=== PATIENT | male | born 1960 | race American Indian/Alaskan Native ===

== ENCOUNTER 2020-12-05 12:19 | Emergency (ER) | payer SELFPAY ==
[2020-12-05 12:43] VITALS: BP 123/81
[2020-12-05] MEDS ORDERED: TETANUS,DIPH,PERTUSS(ACELL) VACCINE 0.5 ML SYRINGE IM ONE (12:43)
[2020-12-05] MEDS ORDERED: LIDOCAINE (1%) 10 MG/1 ML VIAL 20 ML MDV INFILTRATI ONE (12:43)
--- NOTE | 2020-12-05 12:51 | Emergency Department Report ---
ED General Adult HPI - General Stated complaint: L LEG LAC Time Seen by Provider: 12/05/20 12:42 - History of Present Illness Initial comments: 60-year-old -Stateless male patient presents with complaints of left knee laceration today. Patient states while at work, he was using a saw to cut a branch in the branch fell and knocked the chainsaw into his leg. He denies any numbness/tingling/weakness in his leg or difficulty moving his knee. He rates his current pain as a 4/10 in severity. He is unsure of his last tetanus vaccination. -: Sudden - Related Data Previous Rx's Medication Instructions Recorded Last Taken Type Ibuprofen [Motrin 800 MG tab] 800 mg PO Q8HR PRN #20 tablet 12/05/20 Unknown Rx cephALEXin [Keflex] 500 mg PO Q12HR 7 Days #14 cap 12/05/20 Unknown Rx traMADoL [Ultram 50 MG tab] 50 mg PO Q4HR PRN #6 tablet 12/05/20 Unknown Rx Allergies Allergy/AdvReac Type Severity Reaction Status Date / Time No Known Allergies Allergy Unverified 12/05/20 12:36 ED Review of Systems ROS: Stated complaint: L LEG LAC Other details as noted in HPI Musculoskeletal: denies: joint swelling, arthralgia Skin: as per HPI. denies: change in color Neurological: abnormal gait (Antalgic per patient). denies: numbness, paresthesias ED Past Medical Hx - Medications Home Medications: Home Medications Medication Instructions Recorded Confirmed Last Taken Type Ibuprofen [Motrin 800 MG tab] 800 mg PO Q8HR PRN #20 tablet 12/05/20 Unknown Rx cephALEXin [Keflex] 500 mg PO Q12HR 7 Days #14 cap 12/05/20 Unknown Rx traMADoL [Ultram 50 MG tab] 50 mg PO Q4HR PRN #6 tablet 12/05/20 Unknown Rx ED Physical Exam - General General appearance: alert, in no apparent distress - Head Head exam: Present: atraumatic, normocephalic - Eye Eye exam: Absent: scleral icterus - Respiratory Respiratory exam: Absent: respiratory distress - Cardiovascular Cardiovascular Exam: Present: regular rate - Extremities Exam Extremities exam: Present: full ROM (7 cm laceration with mild active bleeding noted to medial lower left knee ; no obvious foreign bodies are noted; patient has normal sensation and full range of motion of the left knee noted;) - Neurological Exam Neurological exam: Present: alert, oriented X3. Absent: motor sensory deficit - Psychiatric Psychiatric exam: Present: normal affect, normal mood - Skin Skin exam: Present: warm, dry, normal color. Absent: rash ED Course Vital Signs 12/05/20 12:36 Temperature 98.2 F Pulse Rate 67 Respiratory 18 Rate Blood Pressure 123/81 O2 Sat by Pulse 97 Oximetry - Laceration /Wound Repair Knee Wound Location: lower extremity Irrigated w/ Saline (ccs): 70 Betadine Prep?: No Anesthesia: 1% Lidocaine Volume Anesthetic (ccs): 10 Wound Repaired With: sutures Suture Size/Type: 3:0, proline Number of Sutures: 17 (Simple interrupted) Sterile Dressing Applied?: Yes Progress: Minimal bleeding occurred. Patient tolerated procedure well without any immediate complications. He has normal range of motion and skin color post suture repair ED Medical Decision Making - Radiology Data Radiology results: report reviewed LEFT KNEE 3 VIEWS INDICATION / CLINICAL INFORMATION: Left knee laceration. Evaluate for foreign body and fracture. COMPARISON: None available. FINDINGS: BONES and JOINT(S): No acute fracture or subluxation. No significant arthritis. SOFT TISSUES: There is an infrapatellar laceration with associated edema with a length of approximately 4 cm. A possible radiopaque foreign body versus area of calcification/ossification is seen posteriorly along the proximal leg at the level of the proximal tibial shaft far way from the laceration. No other radiopaque foreign bodies or other significant abnormalities are seen. ADDITIONAL FINDINGS: None. IMPRESSION: 1. Left knee laceration as above without identification of a foreign body within the vicinity of the laceration or an associated acute fracture. 2. Questionable foreign body versus area of ossification/calcification posteriorly along the leg as above. - Medical Decision Making 60-year-old -Stateless male patient presents with complaints of left knee laceration today. Patient states while at work, he was using a saw to cut a branch in the branch fell and knocked the chainsaw into his leg. He denies any numbness/tingling/weakness in his leg or difficulty moving his knee. He rates his current pain as a 4/10 in severity. He is unsure of his last tetanus vaccination. No signs of tendon/muscle damage. Laceration repair without any immediate complications. Discussed wound care and signs and symptoms that should prompt immediate return to the emergency department in detail with patient who verbalizes understanding. Patient instructed to return to ED in 12 days for suture removal. He is well-appearing, his vitals are normal, he is stable for discharge home Critical care attestation.: If time is entered above; I have spent that time in minutes in the direct care of this critically ill patient, excluding procedure time. ED Disposition Clinical Impression: Laceration of knee Qualifiers: Encounter type: initial encounter Laterality: left Qualified Code(s): S81.012A - Laceration without foreign body, left knee, initial encounter Disposition: - TO HOME OR SELFCARE Is pt being admited?: No Condition: Stable Instructions: Sutured Wound Care, [id number] Additional Instructions: Return to the emergency department in 12 days for suture removal Prescriptions: cephALEXin [Keflex] 500 mg PO Q12HR 7 Days #14 cap Ibuprofen [Motrin 800 MG tab] 800 mg PO Q8HR PRN #20 tablet PRN Reason: Pain, Moderate (4-6) traMADoL [Ultram 50 MG tab] 50 mg PO Q4HR PRN #6 tablet PRN Reason: Pain , Severe (7-10)
--- NOTE | 2020-12-05 13:12 | XRay Report ---
LEFT KNEE 3 VIEWS INDICATION / CLINICAL INFORMATION: Left knee laceration. Evaluate for foreign body and fracture. COMPARISON: None available. FINDINGS: BONES and JOINT(S): No acute fracture or subluxation. No significant arthritis. SOFT TISSUES: There is an infrapatellar laceration with associated edema with a length of approximate ly 4 cm. A possible radiopaque foreign body versus area of calcification/ossification is seen posteri howie along the proximal leg at the level of the proximal tibial shaft far way from the laceration. No other radiopaque foreign bodies or other significant abnormalities are seen. ADDITIONAL FINDINGS: None. IMPRESSION: 1. Left knee laceration as above without identification of a foreign body within the vicinity of the laceration or an associated acute fracture. 2. Questionable foreign body versus area of ossification/calcification posteriorly along the leg as a shannon. Signer Name: Mason Mullins MD Signed: 12/05/2020 1:07 PM Workstation Name: [id number]
== END 2020-12-05 15:12 | disposition home or self-care (01) ==
LOC: ED 12:19
DX: S81.012A Laceration without foreign body, left knee, initial encounter (principal); Z79.899 Other long term (current) drug therapy; W17.89XA Other fall from one level to another, initial encounter; Y93.89 Activity, other specified; Y92.89 Other specified places as the place of occurrence of the external cause; Y99.0 Civilian activity done for income or pay
CPT/HCPCS: 90471; 90715